=== PATIENT | male | born 1970 | race Hispanic/Latino ===

== ENCOUNTER 2020-06-30 10:56 | Emergency (ER) | payer OTHER ==
[~2020-06-30] VITALS: Ht 170.2 cm; Wt 70.9 kg
[2020-06-30 13:50] VITALS: BP 133/78
== END 2020-06-30 13:50 | disposition home or self-care (01) | DRG 605 ==
LOC: ED 10:56
DX: S20.212A Contusion of left front wall of thorax, initial encounter (principal); S20.312A Abrasion of left front wall of thorax, initial encounter; W14.XXXA Fall from tree, initial encounter; Y99.0 Civilian activity done for income or pay